=== PATIENT | female | born 1945 | race Caucasian/White ===

== ENCOUNTER → 2022-05-11 12:21 | Outpatient (CLI) | payer MEDICARE, OTHER, SELFPAY ==
--- NOTE | 2022-05-11 | DI.RAD.S_ITS ---
PROCEDURE: FL BARIUM SWALLOW INDICATIONS: Dysphagia, unspecified COMPARISON: None. FINDINGS: Function: There is normal esophageal peristalsis. Spontaneous gastroesophageal reflux is seen into the upper esophagus. There is normal transit of a calibrated barium tablet through the esophagus into the stomach. Morphology: Large hiatal hernia. Single contrast views show no esophageal strictures, extrinsic mass effects, or diverticula. Limited images of the stomach demonstrate normal appearance. IMPRESSION: 1. Large hiatal hernia. 2. Spontaneous gastroesophageal reflux into the upper esophagus. Dictated by: Lamine Pacheco M.D. on 05/11/2022 at 14:10 Approved by: Lamine Pacheco M.D. on 05/11/2022 at 14:12
== END ==
PROVIDERS: PCP Family Medicine Geriatric Medicine; Referring Provider Internal Medicine Gastroenterology; Visit Provider Internal Medicine Gastroenterology
DX: R13.10 Dysphagia, unspecified (principal); K21.9 Gastro-esophageal reflux disease without esophagitis; K44.9 Diaphragmatic hernia without obstruction or gangrene
CPT/HCPCS: 74220